=== PATIENT | female | born 1950 | race Caucasian/White ===

== ENCOUNTER 2023-10-20 18:49 | Emergency (ER) | payer MEDICARE, MEDICAID, SELFPAY ==
[2023-10-20 19:14] VITALS: BP 116/58; PULSE 102; RESP 17; TEMP 37; O2SAT 97
--- NOTE | 2023-10-20 19:28 | CT_ITS ---
The [address] [address] Patient Name: DEJAN GARZA MRN: [id number] date: 1950 Sex: F Assigned Patient Location: ER Current Patient Location: ER Accession/Order Number: [id number] Exam Date: 10/20/2023 20:54 Report Date: 10/20/2023 21:29 At the request of: PEGGY VASQUES Procedure: CT abdomen pelvis w con CT OF THE ABDOMEN AND PELVIS WITH CONTRAST: 10/20/2023 8:54 PM EST CLINICAL HISTORY: Recent diagnosis of lung cancer. Question abnormal PET scan in stomach. Significant weight loss with nausea. CT of radiation therapy. COMPARISONS: None. TECHNIQUE: Thin section axial CT images were obtained from the lung bases to the pubis symphysis. This CT exam was performed using one or more of the following dose reduction techniques: Automated exposure control, adjustment of the mA and/or kV according to patient size, or use of iterative reconstruction technique. Thin section coronal and sagittal images were reconstructed from the axial data set. All images were reviewed and interpreted. CONTRAST: 100 mL Omnipaque 300 given IV without event. FINDINGS: LUNG BASES: No consolidation or pleural fluid. GE JUNCTION AND STOMACH: There is relatively uniform gastric wall thickening. Could be due to acute gastritis. Recommend endoscopy to assess. No gastric distention. No hiatal hernia. GE junction is in normal position. Duodenal bulb and sweep are unremarkable. LIVER: Pancreatic steatosis. Multiple scattered simple appearing cysts are seen throughout the left and right lobe. Largest left lobe measures 1.7 x 1.7 cm with mean attenuation values 13 Hounsfield units postcontrast; thin-walled bilobed cyst right lobe measures 2.2 cm maximum with mean attenuation values 16 Hounsfield units. Other scattered smaller cysts are present. There is a hyperdense enhancing lesion left lobe in region medial segment left lobe and region near gallbladder fossa measuring approximately 1 cm x 1.4 cm on axial scans. Probable flash hemangioma. Correlate with PET/CT results. This can be further delineated with ultrasound or dynamic liver CT if clinically warranted depending on recent PET CT results. Also demonstrated is what appears to be more focal fatty infiltration adjacent to the falciform ligament medial segment left lobe. No biliary tract dilation. Normal portal vein enhancement. GALLBLADDER: Normal. BILIARY TREE: No ductal dilatation. PANCREAS: Normal. SPLEEN: Normal. ADRENALS: Normal. KIDNEYS: Exophytic simple cyst posterior upper pole left kidney with mean attenuation values of less than 15 Hounsfield units consistent with Bosniak 1 cyst. Left kidney otherwise normal. Right kidney is normal. Collecting systems and ureters are normal. No urinary tract calculi. URINARY BLADDER: Grossly unremarkable. PELVIC STRUCTURES: Unremarkable. SMALL BOWEL: No evidence of obstruction, gross mass, or inflammatory change. LARGE BOWEL: There is considerable moderate diffuse colonic stool retention. There is some uniform wall thickening in region of sigmoid colon the left hemipelvis. This could be from stricture or a colitis. Other causes of nonspecific colitis is not excluded. Scattered diverticulosis. Bowel diverticulitis. APPENDIX: The appendix is not clearly identified and there are no secondary findings to suggest acute appendicitis. LYMPH NODES: There are multiple small lymph nodes in the region of the gastrohepatic ligament and area of uniform gastric wall thickening. Could be reactive from acute gastritis. Attention on follow-up imaging. No pathologically enlarged abdominal, pelvic, retroperitoneal or inguinal lymph nodes. PERITONEUM: No intraperitoneal free air. No free intraperitoneal fluid. MESENTERY: Unremarkable. RETROPERITONEUM: The retroperitoneum is unremarkable. AORTA: Normal in caliber. BODY WALL: No body wall mass. OSSEOUS STRUCTURES: No lytic or blastic bone lesion or fracture. Decompression laminectomies at L3 and L4 with posterior spinal fixation from L3 through L5. L4-5 partial discectomy with metallic intervertebral disc graft placement. No hardware complications. Focal levoscoliosis centered in the mid lumbar spine. CT/CT abdomen pelvis w con IMPRESSION: 1. Circumferential uniform gastric wall thickening with some mural enhancement and trace fluid. Query gastritis and/or underlying gastric ulcer versus gastric malignancy. Correlate with endoscopy. This may explain the abnormality on PET/CT. Associated multiple small nonenlarged but increased number of lymph nodes in region of the stomach and gastrohepatic ligament most likely reactive. Attention on follow-up imaging to ensure resolution and exclude malignant nodes. 2. Hepatic steatosis with multiple scattered cysts. There is at least one indeterminate hyperdense enhancing lesion within the medial segment left lobe adjacent to gallbladder fossa as measured above. Suspected flash of hepatic hemangioma. Given history of malignancy, correlate with PET/CT. Additional definitive imaging can be considered with dynamic liver CT if indicated. 3. Additional focal area of fatty infiltration adjacent to falciform ligament medial segment left lobe. 4. Considerable diffuse colonic stool retention with background diverticulosis. Segmental wall thickening involving sigmoid colon in the left hemipelvis extending 10 cm in length. Nonspecific mild wall thickening that could be from severe stool retention extracorporal colitis. Doubt diverticulitis given uniform nature. 5. Incidental Bosniak 1 left renal cyst. Electronically authenticated by: RODERICK AVILES Date: 10/20/2023 21:29
--- NOTE | 2023-10-20 19:29 | ED.ABDPAIN1 ---
HPI - Abdominal Pain General Chief Complaint: Abdominal Pain Stated Complaint: VOMITING Time Seen by Provider: 10/20/23 18:54 Source: family Mode of arrival: Wheelchair History of Present Illness HPI narrative: Patient being treated through [facility] cancer [facility] in [place] for lung canceer and is undergoing radiation treatment - 5 so far. The patient had a PET scan that identified some changes in the abdomen - but the patient and daughter cannot tell me what they were. The patient has intermittent abdominal pain along with regular nausea and dry heaving. She does not take zofran regularly. She had not had any imaging since the PET scan but has an EGD scheduled in 5 days at [facility]. Daughter is concerned that the patient may hace an abdominal cancer or a blockage causing the symptoms. Related Data Previous Rx's Medication Instructions Recorded ciprofloxacin HCl 500 mg tablet 500 mg PO BID #9 tabs 10/20/23 (Cipro) ondansetron 4 mg disintegrating 4 mg PO Q6H PRN nausea and 10/20/23 tablet vomiting #30 tabs pantoprazole 40 mg tablet,delayed 40 mg PO DAILY 4 weeks #28 tabs 10/20/23 release (Protonix) Allergies Allergy/AdvReac Type Severity Reaction Status Date / Time codeine AdvReac Intermediate nause Verified 10/20/23 19:14 Exam Narrative Exam Narrative: Nurses notes and vital signs reviewed and patient is not hypoxic. afebrile General: Well-appearing and in no apparent distress. Skin: Warm, dry, no pallor noted. No rash. Head: Normocephalic, atraumatic. Eye: Pupils are equal, round and EOMI. No scleral icterus. Ears, Nose, Mouth, and Throat: Oral mucosa is dry Cardiovascular: Tachycardia. Respiratory: No accessory muscle use or respiratory distress. Lungs are clear to auscultation, no wheezing, rales or rhonchi Musculoskeletal: normal ROM, no calf or popliteal tenderness, no lower extremity edema/swelling GI: Abdomen is soft, non-distended. Normal bowel sounds. No masses appreciated. No tenderness to palpation. No rebound, guarding, or rigidity noted. Neurological: A&O x4. No cranial nerve dysfunction observed. No truncal ataxia. Moves all extremities. Sensation intact. Psychiatric: Cooperative and interactive. Normal mood and affect. Constitutional Vital Signs, click to edit/add: Last Vital Signs Temp 98.6 F 10/20/23 19:14 Pulse 102 H 10/20/23 19:14 Resp 17 10/20/23 19:14 BP 116/58 10/20/23 19:14 Pulse Ox 97 10/20/23 19:14 O2 Del Method Room Air 10/20/23 19:14 Course Vital Signs Vital signs: Vital Signs Temperature 98.6 F 10/20/23 19:14 Pulse Rate 102 H 10/20/23 19:14 Respiratory Rate 17 10/20/23 19:14 Blood Pressure 116/58 10/20/23 19:14 Pulse Oximetry 97 10/20/23 19:14 Oxygen Delivery Method Room Air 10/20/23 19:14 Temperature 98.6 F 10/20/23 19:14 Pulse Rate 102 H 10/20/23 19:14 Respiratory Rate 17 10/20/23 19:14 Blood Pressure 116/58 10/20/23 19:14 Pulse Oximetry 97 10/20/23 19:14 Oxygen Delivery Method Room Air 10/20/23 19:14 MDM - Abdominal Pain MDM Narrative Medical decision making narrative: Peripheral IV established and blood drawn and sent for testing. The patient was ordered to undergo CT scanning of the abdomen pelvis with IV contrast. She was also ordered to receive normal saline IV fluid bolus, IV Zofran. CBC unremarkable. CMP notable for low K 3.1 and elevated BUN 21. UA revealed acute UTI and patient received IV Cipro while we awaited CT result. CT revealed gastric wall thickening - gastritis vs gastric ulcer vs malignancy, per radiologist. Also found hepatic steatosis and considerable diffuse colonic stool retention vs colitis, also per radiologist. Results explained to the patient. She was given a copy of the radiologist's report. She has an EGD scheduled this week. She was encouraged to contact her oncologist to discuss today's findings. Patient discharged home with prescriptions for protonix and Zofran for her GI findings/symptoms. She also was prescribed Cipro, which will cover the UTI and the colitis. Lab Data Attestation: I reviewed the patient's lab results. Labs: Lab Results 10/20/23 10/20/23 Range/Units 19:30 19:40 WBC 10.6 (4.0-11.0) 10^3/uL RBC 4.71 (4.20-5.40) 10^6/uL Hgb 13.6 (12.0-16.0) g/dL Hct 41.5 (36.0-48.0) % MCV 88.1 (81.0-99.0) fL MCH 28.9 (26.7-34.0) pg MCHC 32.8 (29.9-35.2) g/dL RDW 13.5 (11.0-15.0) % Plt Count 279 (150-450) 10^3/uL MPV 10.1 (9.5-13.5) fL Neut % (Auto) 74.7 (43.0-75.0) % Lymph % (Auto) 18.0 L (20.5-60.0) % [place] % (Auto) 5.7 (1.7-12.0) % Eos % (Auto) 0.8 L (0.9-7.0) % Baso % (Auto) 0.5 (0.2-2.0) % Neut # (Auto) 7.9 H (1.4-6.5) 10^3/uL Lymph # (Auto) 1.9 (1.2-3.8) 10^3/uL [place] # (Auto) 0.6 (0.3-0.8) 10^3/uL Eos # (Auto) 0.1 (0.0-0.7) 10^3/uL Baso # (Auto) 0.1 (0.0-0.1) 10^3/uL Abs Immat Gran (auto) 0.03 (0.00-0.03) 10^3/uL Imm/Tot Granulo (auto) 0.3 (0.0-0.5) % Sodium 134 L (136-145) mmol/L Potassium 3.1 L (3.5-5.1) mmol/L Chloride 99 (98-107) mmol/L Carbon Dioxide 36.4 H (21.0-32.0) mmol/L Anion Gap 1.7 BUN 21.0 H (7.0-18.0) mg/dL Creatinine 0.69 (0.55-1.02) mg/dL Est GFR ( Amer) >60 (>=60) Est GFR (Non-Af Amer) >60 (>=60) BUN/Creatinine Ratio 30.4 Glucose 137 H (74-106) mg/dL Calcium 9.2 (8.5-10.1) mg/dL Total Bilirubin 0.2 (0.2-1.0) mg/dL AST 14 L (15-37) U/L ALT 15 (14-59) U/L Alkaline Phosphatase 71 (46-116) U/L Total Protein 7.2 (6.4-8.2) g/dL Albumin 3.1 L (3.4-5.0) g/dL Globulin 4.1 g/dL Albumin/Globulin Ratio 0.8 Urine Color Dk. yellow (YELLOW) Urine Clarity Clear (CLEAR) Urine pH 6.5 (5.0-9.0) Ur Specific [place] 1.025 (1.005-1.025) Urine Protein Trace (NEG/TRACE) mg/dL Urine Glucose (UA) 100 A (NEGATIVE) mg/dL Urine Ketones Trace A (NEGATIVE) mg/dL Urine Occult Blood Negative (NEGATIVE) Urine Nitrite Negative (NEGATIVE) Urine Bilirubin Small A (NEGATIVE) Urine Urobilinogen 2.0 A (0.2-1.0) EU/dL Ur Leukocyte Esterase Trace A (NEGATIVE) Urine RBC 2-5 A (0-2) #/HPF Urine WBC 2-5 A (NONE SEEN) #/HPF Ur Squamous Epith Cells Many A (NONE/RARE) #/LPF Urine Crystals None seen (None Seen) #/HPF Urine Bacteria Large A (NONE SEEN) #/HPF Urine Casts None seen (NONE SEEN) #/LPF Urine Mucus Large A (NONE SEEN) Ur Culture Indicated? Yes Discharge Plan Discharge Chief Complaint: Abdominal Pain Clinical Impression: Acute UTI, Constipation, Colitis, Gastritis Patient Disposition: Home, Self-Care Time of Disposition Decision: 21:57 Prescriptions / Home Meds: New pantoprazole [Protonix] 40 mg tablet,delayed release (DR/EC) 40 mg PO DAILY 28 Days Qty: 28 0RF ondansetron 4 mg tablet,disintegrating 4 mg PO Q6H PRN (Reason: nausea and vomiting) Qty: 30 0RF ciprofloxacin HCl [Cipro] 500 mg tablet 500 mg PO BID Qty: 9 0RF Instructions: Gastritis (ED), Constipation (ED), Urinary Tract Infection in Women (ED), Colitis (ED) Stand Alone Forms: Portal Instructions Referrals: Physician,Non-Staff, MD [Primary Care Provider] - 1 week
[2023-10-20] MEDS: 0.9 % SODIUM CHLORIDE 1,000 ML 999 ML IV (19:45)
[2023-10-20 19:53] LABS: Bilirubin Urine SMALL (NEGATIVE); Blood Urine NEGATIVE (NEGATIVE); Clarity Urine CLEAR (CLEAR); Color Urine DK. YELLOW (YELLOW); Glucose Urine UA 100 mg/dL (NEGATIVE); Ketones Urine TRACE mg/dL (NEGATIVE); Leukocyte Esterase Urine TRACE (NEGATIVE); Nitrite Urine NEGATIVE (NEGATIVE); Protein Urine TRACE mg/dL (NEG/TRACE); Specific Gravity Urine 1.025 (1.005-1.025); pH Urine 6.5 (5.0-9.0)
[2023-10-20 19:55] LABS: Urine Microscopic Indicated YES
[2023-10-20 19:56] LABS: Basophils Absolute Auto 0.1 10^3/uL (0.0-0.1); Basophils Percent Auto 0.5 % (0.2-2.0); Eosinophils Absolute Auto 0.1 10^3/uL (0.0-0.7); Eosinophils Percent Auto 0.8 % (0.9-7.0); Hematocrit 41.5 % (36.0-48.0); Hemoglobin 13.6 g/dL (12.0-16.0); Immature Granulocytes Abs Auto 0.03 10^3/uL (0.00-0.03); Immature Granulocytes Pct Auto 0.3 % (0.0-0.5); Lymphocytes Absolute Auto 1.9 10^3/uL (1.2-3.8); Mean Corpuscular HGB Conc 32.8 g/dL (29.9-35.2); Mean Corpuscular Hemoglobin 28.9 pg (26.7-34.0); Mean Corpuscular Volume 88.1 fL (81.0-99.0); Mean Platelet Volume 10.1 fL (9.5-13.5); Monocytes Absolute Auto 0.6 10^3/uL (0.3-0.8); Monocytes Percent Auto 5.7 % (1.7-12.0); Neutrophils Absolute Auto 7.9 10^3/uL (1.4-6.5); Neutrophils Percent Auto 74.7 % (43.0-75.0); Platelet Count 279 10^3/uL (150-450); Red Blood Count 4.71 10^6/uL (4.20-5.40); Red Cell Distribution Width 13.5 % (11.0-15.0); White Blood Count 10.6 10^3/uL (4.0-11.0)
[2023-10-20 20:00] LABS: Bacteria Urine LARGE #/HPF (NONE SEEN)
[2023-10-20 20:01] LABS: Cast Seen? NONE SEEN #/LPF (NONE SEEN); Crystals Seen? None Seen #/HPF (None Seen); Mucus Urine LARGE (NONE SEEN); Squamous Epithelial Cell Urine MANY #/LPF (NONE/RARE); Urine Culture Indicated YES
[2023-10-20 20:13] LABS: Alanine Aminotransferase 15 U/L (14-59); Albumin Globulin Ratio 0.8; Albumin Level 3.1 g/dL (3.4-5.0); Alkaline Phosphatase 71 U/L (46-116); Anion Gap 1.7; Aspartate Amino Transferase 14 U/L (15-37); BUN Creatinine Ratio 30.4; Bilirubin Total 0.2 mg/dL (0.2-1.0); Calcium 9.2 mg/dL (8.5-10.1); Carbon Dioxide 36.4 mmol/L (21.0-32.0); Chloride 99 mmol/L (98-107); Estimated GFR (African America >60 (>=60); Estimated GFR (Non-African Ame >60 (>=60); Globulin 4.1 g/dL; Glucose 137 mg/dL (74-106); Potassium 3.1 mmol/L (3.5-5.1); Sodium 134 mmol/L (136-145); Total Protein 7.2 g/dL (6.4-8.2)
[2023-10-20] MEDS: ONDANSETRON PF 4 MG/2 ML VIAL IV (20:47)
[2023-10-20] MEDS: CIPROFLOXACIN IN 5 % DEXTROSE 400 MG/200 ML PIGGYBACK 200 MG IV (20:48)
[2023-10-20 22:11] VITALS: BP 108/60; PULSE 94; RESP 16; O2SAT 98
== END 2023-10-20 22:16 | disposition home or self-care (01) ==
PROVIDERS: Emergency Provider Emergency Medicine; Family Provider Family Medicine
DX: N39.0 Urinary tract infection, site not specified (principal); K59.00 Constipation, unspecified; K52.9 Noninfective gastroenteritis and colitis, unspecified; K29.70 Gastritis, unspecified, without bleeding; C34.90 Malignant neoplasm of unspecified part of unspecified bronchus or lung
CPT/HCPCS: 36415; 74177; 80053; 81001; 85025; 87086; 96374; 96375; 99285; J0744; J2405; Q9967